=== PATIENT | female | born 2000 | race Caucasian/White ===

== ENCOUNTER 2020-03-20 20:18 | Emergency (ER) | payer OTHER ==
[2020-03-20 20:39] LABS: MUDS CUTOFF CONCENTRATIONS CUTOFF CONC BELOW:
[2020-03-20 20:40] LABS: BILIRUBIN,URINE NEGATIVE (NEGATIVE); GLUCOSE, URINE (UA) NEGATIVE (NEGATIVE); KETONES,URINE (UA) NEGATIVE (NEGATIVE); LEUKOCYTE ESTERASE, URINE SMALL (NEGATIVE); NITRITE,URINE NEGATIVE (NEGATIVE); OCCULT BLOOD,URINE TRACE-INTA (NEGATIVE); PH,URINE 5.5 PH (5.0-7.5); PROTEIN,URINE NEGATIVE (NEGATIVE); UROBILINOGEN,URINE 0.2 (NORMAL) E.U./dL (NORMAL)
[2020-03-20 20:45] LABS: HCG UR QUAL NEGATIVE
[2020-03-20 20:45] LABS: CLARITY,URINE HAZY (CLEAR)
[2020-03-20 20:52] LABS: AMPHETAMINE SCREEN,URINE NEGATIVE (NEGATIVE); BENZODIAZEPINES SCREEN, URINE NEGATIVE (NEGATIVE); COCAINE SCREEN URINE NEGATIVE (NEGATIVE); METHADONE SCREEN, URINE NEGATIVE (NEGATIVE); METHAMPHETAMINES SCREEN, URINE NEGATIVE (NEGATIVE); OPIATE SCREEN, URINE NEGATIVE (NEGATIVE); OXYCODONE SCREEN, URINE NEGATIVE (NEGATIVE); PROPOXYPHENE SCREEN, URINE NEGATIVE (NEGATIVE); TRICYCLIC ANTIDEPRESSANT,URINE NEGATIVE (NEGATIVE)
--- NOTE | 2020-03-20 20:55 | ED Physician Documentation ---
PD HPI MHE - Stated complaint Stated Complaint: MHE - Chief complaint Chief Complaint: MHE - History obtained from History obtained from: Patient - History of Present Illness Primary symptom: Self harm - cut (The patient states she was stressed and triggered by a recent break-up that happened 1 or 2 months ago and did cut herself on her wrist. She says it was stress relief and not suicidal intent and denies overdose/alcohol with it. Feels calm now and not feeling urge to hurt herself.). No: Self harm - OD (she denies overdose/ingestion, but her friend says she had taken some Ibuprofen as well.) Timing - onset: Last night Contributing factors: Sig other, Work. No: Substance abuse - ETOH, Substance abuse - drugs Similar symptoms before: Diagnosis (reactive depression about a month ago with self cutting/suicidal ideation and was hospitalized at [facility] for 1 week.) Recently seen: Emergency Dept, Admitted (Hospitalized for suicide ideation/gesture a month ago (02/25/20) and was hospitalized at [facility] for a week. Has seen counseling weekly after that. Last counseling was earlier this past week.) Review of Systems Constitutional: denies: Fever Nose: denies: Rhinorrhea / runny nose, Congestion Throat: denies: Sore throat Respiratory: denies: Cough GI: denies: Vomiting, Diarrhea : denies: Dysuria Skin: reports: Abrasion (s) (current abrasions/superficial laceration right wrist.) Neurologic: denies: Focal weakness, Numbness, Headache, Head injury PD PAST MEDICAL HISTORY - Past Medical History Cardiovascular: None Respiratory: None Neuro: None Endocrine/Autoimmune: None GI: None REFRIGERATION MANAGER: None : None HEENT: None Psych: Depression, Anxiety Musculoskeletal: None Derm: None - Past Surgical History Past Surgical History: No - Present Medications Home Medications: Ambulatory Orders Medication Instructions Recorded Confirmed No Known Home Medications 02/25/20 02/25/20 - Allergies Allergies/Adverse Reactions: Allergies Allergy/AdvReac Type Severity Reaction Status Date / Time No Known Drug Allergies Allergy Verified 03/20/20 20:26 - Social History Does the pt smoke?: No Smoking Status: Former smoker Does the pt drink ETOH?: No Does the pt have substance abuse?: No - Immunizations Immunizations are current?: Yes PD ED PE NORMAL - Vitals Vital signs reviewed: Yes - General General: Alert and oriented X 3, No acute distress, Well developed/nourished - HEENT HEENT: Moist mucous membranes - Neck Neck: Supple, no meningeal sign - Cardiac Cardiac: RRR, No murmur - Respiratory Respiratory: Clear bilaterally - Derm Derm: Normal color, Warm and dry - Extremities Extremities: Other (The right wrist shows half a dozen superficial lacerations on the volar aspect and a vertical orientation. None are full-thickness. There is no bleeding.) - Neuro Neuro: Alert and oriented X 3, No motor deficit, No sensory deficit, Normal speech Eye Opening: Spontaneous Motor: Obeys Commands Verbal: Oriented GCS Score: 15 - Psych Psych: Normal mood, Normal affect Results - Vitals Vitals: Vital Signs - 24 hr 03/20/20 03/21/20 20:20 06:44 Temperature 36.6 C Heart Rate 80 68 Respiratory 16 14 Rate Blood Pressure 120/81 H 117/74 O2 Saturation 100 99 Oxygen O2 Source Room air - Labs Labs: Laboratory Tests 03/20/20 03/20/20 03/20/20 20:34 20:35 21:10 WBC 8.1 RBC 3.88 L Hgb 12.4 Hct 38.0 MCV 97.9 MCH 32.0 H MCHC 32.6 RDW 11.4 L Plt Count 245 MPV 9.5 Neut # (Auto) 5.3 Lymph # (Auto) 2.2 [place] # (Auto) 0.5 Eos # (Auto) 0.0 Baso # (Auto) 0.0 Absolute Nucleated RBC 0.00 Nucleated RBC % 0.0 Sodium Potassium Chloride Carbon Dioxide Anion Gap BUN Creatinine Estimated GFR (MDRD) Glucose Calcium Total Bilirubin AST ALT Alkaline Phosphatase Total Protein Albumin Globulin Albumin/Globulin Ratio Lipase TSH Urine Color LT. YELLOW Urine Clarity HAZY Urine pH 5.5 Ur Specific [place] <=1.005 <=1.005 Urine Protein NEGATIVE Urine Glucose (UA) NEGATIVE Urine Ketones NEGATIVE Urine Occult Blood TRACE-INTA Urine Nitrite NEGATIVE Urine Bilirubin NEGATIVE Urine Urobilinogen 0.2 (NORMAL) Ur Leukocyte Esterase SMALL H Urine RBC 0-5 Urine WBC 6-10 H Ur Squamous Epith Cells NONE SEEN Urine Bacteria Moderate H Ur Microscopic Review INDICATED Urine Culture Comments INDICATED Urine HCG, Qual NEGATIVE Salicylates Urine Opiates Screen NEGATIVE Ur Oxycodone Screen NEGATIVE Urine Methadone Screen NEGATIVE Ur Propoxyphene Screen NEGATIVE Acetaminophen Ur Barbiturates Screen NEGATIVE Ur Tricyclics Screen NEGATIVE Ur Phencyclidine Scrn NEGATIVE Ur Amphetamine Screen NEGATIVE U Methamphetamines Scrn NEGATIVE U Benzodiazepines Scrn NEGATIVE Urine Cocaine Screen NEGATIVE U Cannabinoids Screen NEGATIVE Ethyl Alcohol 03/20/20 03/20/20 21:10 21:10 WBC RBC Hgb Hct MCV MCH MCHC RDW Plt Count MPV Neut # (Auto) Lymph # (Auto) [place] # (Auto) Eos # (Auto) Baso # (Auto) Absolute Nucleated RBC Nucleated RBC % Sodium 141 Potassium 3.5 Chloride 107 Carbon Dioxide 23 Anion Gap 11.0 BUN 8 Creatinine 0.5 Estimated GFR (MDRD) 159 Glucose 93 Calcium 9.2 Total Bilirubin 1.1 H AST 14 ALT 12 Alkaline Phosphatase 71 Total Protein 8.0 Albumin 4.8 Globulin 3.2 Albumin/Globulin Ratio 1.5 Lipase 36 TSH 0.80 Urine Color Urine Clarity Urine pH Ur Specific [place] Urine Protein Urine Glucose (UA) Urine Ketones Urine Occult Blood Urine Nitrite Urine Bilirubin Urine Urobilinogen Ur Leukocyte Esterase Urine RBC Urine WBC Ur Squamous Epith Cells Urine Bacteria Ur Microscopic Review Urine Culture Comments Urine HCG, Qual Salicylates < 6.0 Urine Opiates Screen Ur Oxycodone Screen Urine Methadone Screen Ur Propoxyphene Screen Acetaminophen < 10 L Ur Barbiturates Screen Ur Tricyclics Screen Ur Phencyclidine Scrn Ur Amphetamine Screen U Methamphetamines Scrn U Benzodiazepines Scrn Urine Cocaine Screen U Cannabinoids Screen Ethyl Alcohol < 5.0 PD MEDICAL DECISION MAKING - ED course Complexity details: considered differential (The patient is very straightforward and calm and states she is not feeling the stress she did yesterday and denies any suicidal ideation at this time. She feels that she would be safe. I suppose Psych consult appropriate and not necessarily directly needing re- hospitalization.), d/w patient, d/w consultants intern (Dr. Ward, one of the MD providers at [facility] called and expressed concern for the patient and asked to have a low threshold for psychiatric consult) ED course: Tele-psych consult by Dr. Villanueva. His impression that he discussed with me was that the patient did seem low risk for further self-harm at this time. However he was concerned about her recent hospitalization and ability for impulse control. He felt having her observed for overnight to ensure she maintains and a calm mood would be prudent. He did not feel she needed hospitalization necessarily. He states he is on again for tele-psych tomorrow evening. He suggests having the patient evaluated again tomorrow with overnight in the ER and if remaining calm and not feeling suicidal that she could then be discharged home. At this point the patient will stay in the ER overnight accompanied by a friend. She was in agreement with this plan with Dr. Villanueva. We can have social work evaluate in the morning and if unavailable can have Dr. Villanueva consults with her again tomorrow evening though could likely have a good assessment of ongoing safety assessment with SW as well. Departure - Departure Clinical Impression: Reactive depression Wrist laceration Qualifiers: Encounter type: initial encounter Laterality: right Qualified Code(s): S61.511A - Laceration without foreign body of right wrist, initial encounter Condition: Stable Record reviewed to determine appropriate education?: Yes Instructions: ED Stress React
[2020-03-20 20:56] LABS: BACTERIA,URINE Moderate /HPF (None Seen); RBC,URINE 0-5 /HPF (0-5); SQUAMOUS EPITHELIAL CELL,UR NONE SEEN (<= Few)
[2020-03-20 21:17] LABS: BASOPHILS % (AUTO) 0.4 %; EOSINOPHILS % (AUTO) 0.4 %; HGB - HEMOGLOBIN 12.4 g/dL (12.0-16.0); LYMPHOCYTES # (AUTO) 2.2 10^3/uL (1.5-3.5); LYMPHOCYTES % (AUTO) 27.3 %; MEAN CORPUSCULAR HGB CONC 32.6 g/dL (32.0-36.0); MEAN CORPUSCULAR VOLUME 97.9 fL (81.0-99.0); MEAN PLATELET VOLUME 9.5 fL (7.9-10.8); MONOCYTES # (AUTO) 0.5 10^3/uL (0.0-1.0); MONOCYTES % (AUTO) 6.2 %; NEUTROPHILS # (AUTO) 5.3 10^3/uL (1.5-6.6); NEUTROPHILS % (AUTO) 65.5 %; PLT - PLATELET COUNT 245 10^3/uL (130-450); RED BLOOD COUNT 3.88 10^6/uL (4.20-5.40); RED CELL DISTRIBUTION WIDTH 11.4 % (12.0-15.0); WHITE BLOOD COUNT 8.1 x10^3/uL (4.8-10.8)
[2020-03-20 21:34] LABS: ACETAMINOPHEN < 10 ug/mL (10-30); ALBUMIN 4.8 g/dL (3.2-5.5); ALBUMIN/GLOBULIN RATIO 1.5 (1.0-2.2); ALKALINE PHOSPHATASE 71 IU/L (42-121); ALT ALANINE AMINOTRANSFERASE 12 IU/L (10-60); AST ASPARTATE AMINOTRANSFERASE 14 IU/L (10-42); BILIRUBIN,TOTAL 1.1 mg/dL (0.2-1.0); BUN - BLOOD UREA NITROGEN 8 mg/dL (6-20); CALCIUM 9.2 mg/dL (8.5-10.3); CARBON DIOXIDE - CO2 23 mmol/L (21-32); CHLORIDE 107 mmol/L (101-111); CREATININE 0.5 mg/dL (0.4-1.0); GLUCOSE 93 mg/dL (70-100); LIPASE 36 U/L (22-51); SALICYLATE < 6.0 mg/dL; SODIUM 141 mmol/L (135-145)
--- NOTE | 2020-03-21 01:22 | TELEPSYCH PHYS NOTE ---
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 This psychiatrist saw this patient last month for depressed mood and SI. She was admitted to [facility] for one week due to difficulty dealing with a recent breakup. The patient returns to the ER with a friend after making a superficial cut to her wrist and trying to ingest several Advil tablets. The patient received a text from her [employer] which upset her. She then tried to cut herself with glass and then ingested pills in front of a friend who made her vomit. The patient now denies SI and says that she had been doing well before the text. - SI/HI/SELF HARM SI/HI/Self Harm Text (Current or History of):: SI: The patient tried to jump out of a second story window last month ago. Was seen in the ER on 02/25, referred to inpatient care, and admitted to [facility] for 1 week. - VIOLENCE/LEGAL/COLLATERAL Violence - Legal - Collateral: Violence: none Legal: none Collateral: The patient was accompanied by a friend who agreed with the patient that she had been doing well until the text from the [employer]. The patient did not want to come to the ER because she does not want to go back to [facility] which is the [facility]. - PSYCHIATRIC HX/TREATMENT HX Psychiatric: Depression, Anxiety Psychiatric/Treatment Hx Other: Past Psychiatric History: admitted to [facility] for 1 week last month due to depressed mood and SI[place] MEDICAL HX Does the pt have a hx of MRSA?: No Neurological History: None Eyes, Ears, Nose, Throat: None Cardiovascular: None Respiratory: None Skin: None Endocrine/Autoimmune: None Gastrointestinal: None Urinary: None Musculoskeletal: None Blood Disorders: None - HOME MEDICATIONS Home Meds (as last confirmed): Patient History Medication Instructions Recorded Confirmed No Known Home Medications 02/25/20 02/25/20 - ALLERGIES Allergies (as last confirmed): Allergies Allergy/AdvReac Type Severity Reaction Status Date / Time No Known Drug Allergies Allergy Verified 03/20/20 20:26 - FAMILY PSYCH/SUICIDE/SOCIAL HX-MENTAL Family - Suicide - Social Hx and Mental Status Exam: Family Psychiatric History: father- mood disorder. Social History: single, Lives on [address] with 1 roommate. Employment: active duty [employer] Education: HS grad, no college Stressors: see HPI History: none Mental Status Examination: Attitude and behavior: cooperative Speech: WNL Affect and mood: sad affect and mood Association and thought processes: linear Thought content: no delusions, no SI, no HI Perception: no hallucinations Sensorium, memory, and orientation: AAOx3 Intellectual functioning: average Insight and judgment: impaired - PATIENT PROBLEM LIST (1) MDD (major depressive disorder) Qualifiers: Major depression recurrence: recurrent Major depression episode severity: moderate Impression: Impression/Risk Assessment: The patient is a 19-year-old female who presents to the ER with depressed mood and after an impulsive suicide attempt. She had been doing well before the stressor that caused the event. The patient currently denies SI but will need further observation to ensure she is safe to discharge. - TREATMENT/PHARMACOLOGICAL RECOMMENDATION Treatment - Pharmacological - Therapy Recommendations: Treatment Recommendations: Continue Zoloft 25 mg daily. Hold patient in the ER and have her reassessed by this psychiatrist tomorrow. Reconsult psychiatry on 03/21 at approximately 8pm - TIME SPENT & PROVIDER LOCATION Telepsych consultation conducted via videoconferencing: Yes List names and roles of persons who participated in consult: Cruz Villanueva MD Telepsych Provider Location: [place] Time Telepsych consult began: 03:07 Time Telepsych consult completed: 03:40
[2020-03-21 15:16] VITALS: BP 126/72
--- NOTE | 2020-03-21 15:22 | ED Physician Documentation ---
ED Addendum - Addendum Addendum: 03/21/20 15:22 Her command was fairly insistent that she be hospitalized and she was accepted to [facility] via S transportation and cobras were completed. She is tearful in the department but medically stable for psychiatric evaluation.
== END 2020-03-21 18:49 ==
LOC: ED 20:18
DX: S61.511A Laceration without foreign body of right wrist, initial encounter (principal); X78.0XXA Intentional self-harm by sharp glass, initial encounter; Y92.009 Unspecified place in unspecified non-institutional (private) residence as the place of occurrence of the external cause; F33.1 Major depressive disorder, recurrent, moderate; Z87.891 Personal history of nicotine dependence
CPT/HCPCS: 36415; 80053; 80306; 80307; 80320; 80329; 81001; 81003; 81025; 83690; 84443; 85025; 87086; 99283; 99285

== ENCOUNTER 2020-04-20 23:33 | Outpatient (CLI) | payer OTHER | END 2020-04-20 23:59 | disposition EMS.NT | LOC: EMS 23:33 | PROVIDERS: ATTEND Surgery | DX: T43.222A Poisoning by selective serotonin reuptake inhibitors, intentional self-harm, initial encounter (principal); T39.312A Poisoning by propionic acid derivatives, intentional self-harm, initial encounter ==

== ENCOUNTER 2020-04-21 00:32 | Emergency (ER) | payer OTHER ==
--- NOTE | 2020-04-21 00:47 | ED Physician Documentation ---
PD HPI MHE - Stated complaint Stated Complaint: POSS OD - History obtained from History obtained from: Patient - History of Present Illness Primary symptom: Self harm - OD Timing - onset: Enter time (approximately 23:00) Recently seen: Emergency Dept (evaluated in this ED in January and again in February with both visits culminating in transfer to [facility] for mental health inpatient stay) - Additional information Additional information: [facility]AN[facility]. Per medic report, patient overdosed at approximately 11 PM tonight on sertraline, melatonin, and ibuprofen. Patient reportedly told them she took all of the medications in all of these bottles and that they were full except for the sertraline. The following empty bottles brought to ED with patient: Sertraline was filled 04/08/2020 (30 tablets, 50mg each). Melatonin (two bottles: 90 tabs 5mg, 120 tabs 10mg) Ibuprofen (100 coated tabs, 200mg each) Patient then called a friend and told them she overdosed and they called 911. Patient arrives drowsy but makes purposeful movements, ignores my questions and does not follow commands Review of Systems Unable to obtain: AMS, Intoxicated, Uncooperative PD PAST MEDICAL HISTORY - Past Medical History Cardiovascular: None Respiratory: None Neuro: None Endocrine/Autoimmune: None GI: None GLOBE MOUNTER: None : None HEENT: None Psych: Depression, Anxiety Musculoskeletal: None Derm: None - Past Surgical History Past Surgical History: No - Present Medications Home Medications: Ambulatory Orders Medication Instructions Recorded Confirmed No Known Home Medications 02/25/20 02/25/20 - Allergies Allergies/Adverse Reactions: Allergies Allergy/AdvReac Type Severity Reaction Status Date / Time No Known Drug Allergies Allergy Verified 04/21/20 01:11 - Social History Does the pt smoke?: No Smoking Status: Former smoker Does the pt drink ETOH?: No Does the pt have substance abuse?: No - Immunizations Immunizations are current?: Yes PD ED PE NORMAL - Vitals Vital signs reviewed: Yes - General General: No acute distress, Well developed/nourished, Other (drowsy but purposeful movements (turns away from examining physician, pulls blankets up)) - HEENT HEENT: Atraumatic, PERRL, EOMI, Moist mucous membranes - Neck Neck: Supple, no meningeal sign - Cardiac Cardiac: No murmur - Respiratory Respiratory: No respiratory distress, Clear bilaterally - Abdomen Abdomen: Soft, Non tender, Non distended - Derm Derm: Normal color, Warm and dry - Extremities Extremities: No deformity - Neuro Eye Opening: To Voice Motor: Localizes to Pain Verbal: Incomprehensible GCS Score: 10 PD ED PE EXPANDED - Cardiac Cardiac: Tachy, Regular Rhythm Results - Vitals Vitals: Vital Signs - 24 hr 04/21/20 04/21/20 04/21/20 00:15 01:10 01:41 Temperature 36.8 C Heart Rate 88 91 108 H Respiratory 19 19 15 Rate Blood Pressure 114/64 108/60 94/76 O2 Saturation 99 98 98 04/21/20 04/21/20 04/21/20 02:10 03:45 04:04 Temperature Heart Rate 93 103 H 110 H Respiratory 17 18 21 Rate Blood Pressure 99/62 120/71 102/90 H O2 Saturation 100 96 98 04/21/20 04/21/20 04/21/20 04:36 06:20 07:15 Temperature Heart Rate 105 H 99 104 H Respiratory 19 21 17 Rate Blood Pressure 119/86 H 123/78 116/73 O2 Saturation 98 100 100 04/21/20 07:54 Temperature Heart Rate 117 H Respiratory 19 Rate Blood Pressure 104/68 O2 Saturation 98 Oxygen O2 Source Room air - EKG (time done) No standard instances Rate: Rate (enter#) (132) Rhythm: Sinus tachycardia [place]: Normal Intervals: Normal MI QRS: Normal Ischemia: Normal ST segments Other comments: Other comments (borderline IVCD) - Labs Labs: Laboratory Tests 04/21/20 04/21/20 04/21/20 00:50 00:50 00:50 WBC 10.1 RBC 4.00 L Hgb 13.2 Hct 39.7 MCV 99.3 H MCH 33.0 H MCHC 33.2 RDW 11.7 L Plt Count 287 MPV 9.1 Neut # (Auto) 4.2 Lymph # (Auto) 5.1 H [place] # (Auto) 0.6 Eos # (Auto) 0.1 Baso # (Auto) 0.0 Absolute Nucleated RBC 0.00 Band Neuts % (Manual) Not Reportable Abnorm Lymph % (Manual) Not Reportable Nucleated RBC % 0.0 Neutrophils # (Manual) Not Reportable Lymphocytes # (Manual) Not Reportable Monocytes # (Manual) Not Reportable Eosinophils # (Manual) Not Reportable Basophils # (Manual) Not Reportable Differential Comment MANUAL=AUTO DIFF Platelet Estimate NORMAL (130-450,000) RBC Morph Micro Appear NORMAL APPEARANCE Sodium 142 Potassium 4.2 Chloride 104 Carbon Dioxide 23 Anion Gap 15.0 H BUN 8 Creatinine 0.6 Estimated GFR (MDRD) 127 Glucose 99 Calcium 9.4 Total Bilirubin 1.0 AST 18 ALT 15 Alkaline Phosphatase 85 Total Protein 7.7 Albumin 4.8 Globulin 2.9 Albumin/Globulin Ratio 1.7 Lipase 93 H TSH 3.05 HCG, Quant Urine Color Urine Clarity Urine pH Ur Specific [place] Urine Protein Urine Glucose (UA) Urine Ketones Urine Occult Blood Urine Nitrite Urine Bilirubin Urine Urobilinogen Ur Leukocyte Esterase Urine RBC Urine WBC Ur Squamous Epith Cells Urine Bacteria Ur Microscopic Review Urine Culture Comments Salicylates < 6.0 Urine Opiates Screen Ur Oxycodone Screen Urine Methadone Screen Ur Propoxyphene Screen Acetaminophen < 10 L Ur Barbiturates Screen Ur Tricyclics Screen Ur Phencyclidine Scrn Ur Amphetamine Screen U Methamphetamines Scrn U Benzodiazepines Scrn Urine Cocaine Screen U Cannabinoids Screen Ethyl Alcohol 145.3 04/21/20 04/21/20 04/21/20 00:50 03:22 05:40 WBC RBC Hgb Hct MCV MCH MCHC RDW Plt Count MPV Neut # (Auto) Lymph # (Auto) [place] # (Auto) Eos # (Auto) Baso # (Auto) Absolute Nucleated RBC Band Neuts % (Manual) Abnorm Lymph % (Manual) Nucleated RBC % Neutrophils # (Manual) Lymphocytes # (Manual) Monocytes # (Manual) Eosinophils # (Manual) Basophils # (Manual) Differential Comment Platelet Estimate RBC Morph Micro Appear Sodium Potassium Chloride Carbon Dioxide Anion Gap BUN Creatinine Estimated GFR (MDRD) Glucose Calcium Total Bilirubin AST ALT Alkaline Phosphatase Total Protein Albumin Globulin Albumin/Globulin Ratio Lipase TSH HCG, Quant < 0.60 Urine Color YELLOW Urine Clarity CLEAR Urine pH 6.5 Ur Specific [place] 1.015 Urine Protein NEGATIVE Urine Glucose (UA) NEGATIVE Urine Ketones NEGATIVE Urine Occult Blood NEGATIVE Urine Nitrite NEGATIVE Urine Bilirubin NEGATIVE Urine Urobilinogen 0.2 (NORMAL) Ur Leukocyte Esterase MODERATE H Urine RBC None Seen Urine WBC 6-10 H Ur Squamous Epith Cells MANY Squamous H Urine Bacteria Few Ur Microscopic Review INDICATED Urine Culture Comments NOT INDICATED Salicylates Urine Opiates Screen NEGATIVE Ur Oxycodone Screen NEGATIVE Urine Methadone Screen NEGATIVE Ur Propoxyphene Screen NEGATIVE Acetaminophen Ur Barbiturates Screen NEGATIVE Ur Tricyclics Screen NEGATIVE Ur Phencyclidine Scrn NEGATIVE Ur Amphetamine Screen NEGATIVE U Methamphetamines Scrn NEGATIVE U Benzodiazepines Scrn NEGATIVE Urine Cocaine Screen NEGATIVE U Cannabinoids Screen NEGATIVE Ethyl Alcohol 35.3 PD MEDICAL DECISION MAKING - ED course Complexity details: reviewed old records, reviewed results, re-evaluated patient, considered differential ED course: held in ED overnight pending sobriety when she can be reevaluated for considera tion of inpatient placement. Care of patient turned over to Dr. Tapia at end of my shift pending disposition
[2020-04-21 01:04] LABS: BASOPHILS % (AUTO) 0.4 %; EOSINOPHILS # (AUTO) 0.1 10^3/uL (0.0-0.7); EOSINOPHILS % (AUTO) 0.5 %; HGB - HEMOGLOBIN 13.2 g/dL (12.0-16.0); LYMPHOCYTES # (AUTO) 5.1 10^3/uL (1.5-3.5); LYMPHOCYTES % (AUTO) 50.8 %; MEAN CORPUSCULAR HGB CONC 33.2 g/dL (32.0-36.0); MEAN CORPUSCULAR VOLUME 99.3 fL (81.0-99.0); MEAN PLATELET VOLUME 9.1 fL (7.9-10.8); MONOCYTES # (AUTO) 0.6 10^3/uL (0.0-1.0); MONOCYTES % (AUTO) 5.9 %; NEUTROPHILS # (AUTO) 4.2 10^3/uL (1.5-6.6); NEUTROPHILS % (AUTO) 41.9 %; PLT - PLATELET COUNT 287 10^3/uL (130-450); RED CELL DISTRIBUTION WIDTH 11.7 % (12.0-15.0); WHITE BLOOD COUNT 10.1 x10^3/uL (4.8-10.8)
[2020-04-21] MEDS ORDERED: SODIUM CHLORIDE 0.9% 1,000 ML IV STA ×2 (01:15→06:52)
[2020-04-21 01:19] LABS: ACETAMINOPHEN < 10 ug/mL (10-30); ALBUMIN 4.8 g/dL (3.2-5.5); ALBUMIN/GLOBULIN RATIO 1.7 (1.0-2.2); ALKALINE PHOSPHATASE 85 IU/L (42-121); ALT ALANINE AMINOTRANSFERASE 15 IU/L (10-60); AST ASPARTATE AMINOTRANSFERASE 18 IU/L (10-42); BUN - BLOOD UREA NITROGEN 8 mg/dL (6-20); CALCIUM 9.4 mg/dL (8.5-10.3); CARBON DIOXIDE - CO2 23 mmol/L (21-32); CHLORIDE 104 mmol/L (101-111); CREATININE 0.6 mg/dL (0.4-1.0); GLUCOSE 99 mg/dL (70-100); LIPASE 93 U/L (22-51); SALICYLATE < 6.0 mg/dL; SODIUM 142 mmol/L (135-145); TOTAL PROTEIN 7.7 g/dL (6.7-8.2)
[2020-04-21 01:34] LABS: DIFFERENTIAL COMMENT MANUAL=AUTO DIFF; PLATELET ESTIMATE, MANUAL NORMAL (130-450,000) (NORMAL); RBC MORPHOLOGY (MULTIPLE) NORMAL APPEARANCE (NORMAL)
[2020-04-21 03:27] LABS: MUDS CUTOFF CONCENTRATIONS CUTOFF CONC BELOW:
[2020-04-21] MEDS ORDERED: ONDANSETRON 4 MG/2 ML VIAL IVP STA ×2 (03:27→06:52)
[2020-04-21 03:28] LABS: BILIRUBIN,URINE NEGATIVE (NEGATIVE); GLUCOSE, URINE (UA) NEGATIVE (NEGATIVE); KETONES,URINE (UA) NEGATIVE (NEGATIVE); LEUKOCYTE ESTERASE, URINE MODERATE (NEGATIVE); NITRITE,URINE NEGATIVE (NEGATIVE); OCCULT BLOOD,URINE NEGATIVE (NEGATIVE); PH,URINE 6.5 PH (5.0-7.5); PROTEIN,URINE NEGATIVE (NEGATIVE); UROBILINOGEN,URINE 0.2 (NORMAL) E.U./dL (NORMAL)
[2020-04-21 03:29] LABS: CLARITY,URINE CLEAR (CLEAR)
[2020-04-21 03:35] LABS: BACTERIA,URINE Few /HPF (None Seen); RBC,URINE None Seen /HPF (0-5); SQUAMOUS EPITHELIAL CELL,UR MANY Squamous (<= Few)
[2020-04-21 03:39] LABS: AMPHETAMINE SCREEN,URINE NEGATIVE (NEGATIVE); BENZODIAZEPINES SCREEN, URINE NEGATIVE (NEGATIVE); COCAINE SCREEN URINE NEGATIVE (NEGATIVE); METHADONE SCREEN, URINE NEGATIVE (NEGATIVE); METHAMPHETAMINES SCREEN, URINE NEGATIVE (NEGATIVE); OPIATE SCREEN, URINE NEGATIVE (NEGATIVE); OXYCODONE SCREEN, URINE NEGATIVE (NEGATIVE); PROPOXYPHENE SCREEN, URINE NEGATIVE (NEGATIVE); TRICYCLIC ANTIDEPRESSANT,URINE NEGATIVE (NEGATIVE)
[2020-04-21] MEDS ORDERED: PANTOPRAZOLE 40 MG VIAL IVP STA (07:18)
--- NOTE | 2020-04-21 13:56 | ED Physician Documentation ---
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 Ward at shift change. Briefly is multidrug overdose in a suicide attempt. Third in as many months. Seen by social work and a bed was arranged [facility] for further evaluation and treatment. Cobras were completed. She had been tachycardic due to the overdose but that came down while being monitored into the normal range here. Disposition transferred to [facility] for psychiatric care Condition stable Diagnosis Intentional overdose 04/21/20 17:21
[2020-04-21 15:09] VITALS: BP 121/60
== END 2020-04-21 17:07 ==
LOC: EDUNIT# → EDBD → ED 00:32
DX: T43.222A Poisoning by selective serotonin reuptake inhibitors, intentional self-harm, initial encounter (principal); R89.2 Abnormal level of other drugs, medicaments and biological substances in specimens from other organs, systems and tissues; R00.0 Tachycardia, unspecified; Z87.891 Personal history of nicotine dependence
CPT/HCPCS: 36415; 80053; 80306; 80307; 80320; 80329; 81001; 81003; 83690; 84443; 84702; 85025; 87086; 93005; 96361; 96374; 96375; 96376; 99281